=== PATIENT | female | born 1955 | race Caucasian/White ===

== ENCOUNTER 2018-10-27 09:53 | Day surgery (SDC) | payer OTHER ==
[~2018-10-27] VITALS: Ht 167.6 cm; Wt 93.3 kg
--- NOTE | 2018-10-27 10:48 | PREAC ---
Date/Time of Note Date/Time of Note DATE: 10/27/18 TIME: 10:46 Anesthesia Eval and Record Evaluation Time Pre-Procedure Interview DATE: 10/27/18 TIME: 10:46 Age 62 Sex female NPO: 8 hrs Preoperative diagnosis occult blood in stool Planned procedure COLONOSCOPY WITH BIOPSIES Past Medical History Past Medical History: Includes Surgery & Anesthesia Issues No known issue Meds Anticoagulation: No Beta Husam within 24 hr: No Reason Beta Husam not given: Pt. not on B-Husam Reported Medications [None] No Conflict Check 07/21/11 Meds reviewed: Yes Allergies Coded Allergies: No Known Drug Allergies (Verified Allergy, 07/21/11) Allergies Reviewed: Yes Labs/Studies Labs Reviewed: Reviewed by anesthesiologist test: N/A Pre-procedure Exam Airway: Adequate mouth opening, Adequate thyromental dist Mallampati: Mallampati II Teeth: Normal Lung: Normal Heart: Normal ASA Physical Status ASA physical status: 2 Emergency: None Planned Anesthetic General/MAC: MAC Planned Pain Management Parenteral pain med Pre-operative Attestations Prior to commencing anesthesia and surgery, the patient was re-evaluated, there was verification of: *The patient's identity *The results of appropriate recent lab work and preoperative vital signs *The above evaluation not changing prior to induction *Anesthetic plan, risk benefits, alternative and complications discussed with patient/family; questions answered; patient/family understands, accepts and wishes to proceed. Ford Carrion M.D. Oct 27, 2018 10:48
[2018-10-27 10:52] VITALS: Ht 167.6 cm; Wt 93.3 kg
[2018-10-27 11:03] VITALS: BP 120/65; PULSE 83; RESP 14
[2018-10-27] MEDS ORDERED: PROPOFOL 20 ML ONE (11:06)
[2018-10-27] MEDS ORDERED: LIDOCAINE 2% (SDV) 5 ML INJ ONE (11:06)
[2018-10-27 11:51] VITALS: BP 125/74; PULSE 68; RESP 16
== END 2018-10-27 16:11 | disposition home or self-care (01) ==
LOC: GIL 09:53
PROVIDERS: ATTEND Internal Medicine Gastroenterology
DX: R19.5 Other fecal abnormalities (principal); K64.8 Other hemorrhoids
CPT/HCPCS: 45378; Z7610